=== PATIENT | female | born 1935 | race Caucasian/White ===

== ENCOUNTER 2025-09-10 10:07 | Observation (INO) ==
--- NOTE | 2025-09-10 10:23 | DR.AMS ---
HPI Time Seen Time Seen by Provider: 09/10/25 10:12 Complaint Cheif Complaint Doctors Comments: This patient was sent over from the group home for agitation. She is currently being treated for urinary tract infection and is on cefdinir. PMH PMH Past Medical History: Anemia, Depression, GERD and Hypothyroidism Past Surgical History: Yes Surgical History: Cholecystectomy and Hysterectomy Family History Family Medical History: Diabetes Mellitus, Heart Failure and Hypertension Social History Do you use any recreational Drugs:: No ROS Review of Systems Constitutional: Other (Altered mental status, agitation currently treated for UTI) Eyes: No Symptoms Reported ENTM: No Symptoms Reported Respiratoy: No Symptoms Reported Cardiovascular: No Symptoms Reported Gastrointestinal/Abdominal: No Symptoms Reported Genitourinary: Other (Currently being treated for UTI) Neurological: Other (Altered mental status) Musculoskeletal: No Symptoms Reported Integumentary: No Symptoms Reported Hematologic/Lymphatic: No Symptoms Reported Endocrine: No Symptoms Reported Psychiatric: Other (Agitation, depression) All Other Systems: Reviewed and Negative PE Vitals Vital Signs: Temp Pulse Resp BP Pulse Ox O2 Del Method 09/10/25 14:45 60 14 94 L 09/10/25 14:30 116/52 09/10/25 14:30 62 14 95 09/10/25 14:15 63 14 93 L 09/10/25 14:01 100/46 09/10/25 14:01 62 17 94 L 09/10/25 14:00 62 16 92 L 09/10/25 13:55 98.4 F 09/10/25 13:45 65 14 94 L 09/10/25 13:30 149/64 09/10/25 13:27 140/63 09/10/25 13:27 73 21 09/10/25 13:15 71 22 96 09/10/25 12:45 75 20 09/10/25 12:30 74 20 09/10/25 12:15 78 25 H 09/10/25 11:30 90 34 H 96 09/10/25 11:00 87 52 H 09/10/25 10:25 99.0 F 76 20 132/51 90 L Room Air General Limitations: Physical Limitation (This patient is nonambulatory and also has agitation) General Appearance: Anxious and In Distress (MILD DISTRESS) Head Head Exam: Normal Inspection Eyes Eye exam: Normal Appearance ENT ENT Exam: Normal Exam External Ear Exam: Normal External Inspection TM/Canal Exam: Bilateral: Normal Nose Exam: Normal Nose Exam Mouth Exam: Normal Inspection Throat Exam: Normal Inspection Neck Neck Exam: Normal Inspection Chest Chest Inspection: Normal Inspection Respiratory Respiratory Exam: Normal Lung Sounds Bilat Respiratory Exam: Bilateral: Clear to Auscultation Cardiovascular Cardiovascular Exam: Regular Rate Abdominal Exam Abdominal Exam: Normal Inspection Extremities Extremities Exam: Normal Inspection Back Back Exam: Normal Inspection Neurological Neurological Exam: Other (Disorientated to person place and time) Speech: Fluid Speech Motor Strength - LUE: 3/5 Motor Strength - RUE: 3/5 Motor Strength - LLE: 3/5 Motor Strength - RLE: 3/5 Psychological Psychiatric Exam: Agitated and Anxious MDM Differential Diagnosis Metabolic: Dehydration, Hypernatremia and Hyponatremia Toxicologic: Medication Toxicity Infectious: Sepsis and UTI COURSE Treatment Treatment: This patient may rub stable during the ER evaluation. She was more agitated initially she had to be given an additional 2.5 mg of Haldol in the ER for agitation. The patient had already been given 2.5 of Haldol at the group home. Patient did have the workup done she did have a florid urinary tract infection here she was given Rocephin 1 g IV here in the ER. Patient also got a CT scan of her brain that showed no intracranial abnormality except for some micro vascular changes. This patient was discussed with Dr. Davey at 1430 she said the patient could be put in the hospital and treated for urinary tract infection but ultimate goal is to transfer for this patient to [facility] for further treatment of foot bipolar disorder depression and may be a attempt to stab herself with a pen. ROR Labs Reviewed Laboratory Results Reviewed?: Yes 09/10/25 10:54 09/10/25 10:54 Laboratory: WBC 4.2 X10^3/uL (3.6-10.0) 09/10/25 10:54 RBC 3.01 X10^6/uL (3.5-5.4) L 09/10/25 10:54 Hgb 9.4 g/dL (12.0-16.0) L 09/10/25 10:54 Hct 27.5 % (36.0-47.0) L 09/10/25 10:54 MCV 91.5 fL (80.0-100.0) 09/10/25 10:54 MCH 31.4 pg (27.0-34.0) 09/10/25 10:54 MCHC 34.3 g/dL (33.0-35.0) 09/10/25 10:54 RDW 13.9 % (11.6-16.5) 09/10/25 10:54 Plt Count 225 X10^3/uL (150.0-450.0) 09/10/25 10:54 MPV 8.5 fL (7.4-11.0) 09/10/25 10:54 Neut % (Auto) 60.0 % (42.0-75.0) 09/10/25 10:54 Lymph % (Auto) 19.8 % (21.0-51.0) L 09/10/25 10:54 [place] % (Auto) 13.9 % (0.0-13.0) H 09/10/25 10:54 Eos % (Auto) 5.5 % (0.9-2.9) H 09/10/25 10:54 Baso % (Auto) 0.8 % (0.2-1.0) 09/10/25 10:54 Neut # (Auto) 2.5 x10^3/uL (2.2-4.8) 09/10/25 10:54 Lymph # (Auto) 0.8 X10^3/uL (1.3-2.9) L 09/10/25 10:54 [place] # (Auto) 0.6 x10^3/uL (0.3-0.8) 09/10/25 10:54 Eos # (Auto) 0.2 x10^3/uL (0.0-0.2) 09/10/25 10:54 Baso # (Auto) 0.0 X10^3/uL (0.0-0.1) 09/10/25 10:54 Absolute Nucleated RBC 0.1 /100WBC 09/10/25 10:54 Sodium 135 mmol/L (136-145) L 09/10/25 10:54 Corrected Sodium TNP 09/10/25 10:54 Potassium 4.5 mmol/L (3.5-5.1) 09/10/25 10:54 Chloride 101 mmol/L (98-107) 09/10/25 10:54 Carbon Dioxide 31.4 mmol/L (21-32) 09/10/25 10:54 BUN 21 mg/dL (7-18) H 09/10/25 10:54 Creatinine 1.01 mg/dL (0.55-1.02) 09/10/25 10:54 Est GFR (MDRD) Af Amer > 60 (>60) 09/10/25 10:54 Est GFR (MDRD) Non-Af 55 (>60) L 09/10/25 10:54 Glucose 88 mg/dL (65-99) 09/10/25 10:54 Lactic Acid 0.8 mmol/L (0.4-2.0) 09/10/25 10:54 Calcium 9.1 mg/dL (8.5-10.1) 09/10/25 10:54 Corrected Calcium 10.5 mg/dL (8.5-10.1) H 09/10/25 10:54 Total Bilirubin 0.30 mg/dL (0.2-1.0) 09/10/25 10:54 AST 18 Units/L (15-37) 09/10/25 10:54 ALT 12 Units/L (12-78) 09/10/25 10:54 Alkaline Phosphatase 185 Units/L (46-116) H 09/10/25 10:54 Total Protein 6.2 g/dL (6.4-8.2) L 09/10/25 10:54 Albumin 2.2 g/dL (3.4-5.0) L 09/10/25 10:54 Globulin 4.0 g/dL (2.5-4.5) 09/10/25 10:54 Albumin/Globulin Ratio 0.6 Ratio (1.1-2.1) L 09/10/25 10:54 Specimen Type Catherized urine 09/10/25 11:00 Urine Color Pale yellow (YELLOW) 09/10/25 11:00 Urine Appearance Hazy (CLEAR) 09/10/25 11:00 Urine pH 6.0 (5.0 - 8.0) 09/10/25 11:00 Ur Specific [place] 1.015 (1.000-1.030) 09/10/25 11:00 Urine Protein 3+ (NEGATIVE) 09/10/25 11:00 Urine Glucose (UA) Negative (NEGATIVE) 09/10/25 11:00 Urine Ketones Negative (NEGATIVE) 09/10/25 11:00 Urine Blood 4+ (NEGATIVE) 09/10/25 11:00 Urine Nitrite Negative (NEGATIVE) 09/10/25 11:00 Urine Bilirubin Negative (NEGATIVE) 09/10/25 11:00 Urine Urobilinogen Normal (NORMAL) 09/10/25 11:00 Ur Leukocyte Esterase 3+ (NEGATIVE) 09/10/25 11:00 Urine RBC 10-20 /HPF (0-3) A 09/10/25 11:00 Urine WBC Tntc /HPF (0-5) A 09/10/25 11:00 Ur Squamous Epith Cells Rare /HPF (NEGATIVE) 09/10/25 11:00 Urine Bacteria 2+ /HPF (NEGATIVE) 09/10/25 11:00 Ur Culture Indicated? Yes/culture set up 09/10/25 11:00 Opioid Opioid Risk Tool Age (Francis box if 16-45): No History of Preadolescent Sexual Abuse: No Total: 0 Total Score Risk Category: Low Risk Copyright: Matthew BLISS predicting aberrant behaviors Discharge Plan Diagnosis Discharge Problem: UTI (urinary tract infection), Altered mental status Discharge Plan Condition: Stable Prescriptions: No Action gabapentin 600 mg tablet 600 mg PO TID donepezil 10 mg tablet 10 mg PO QDAY ltdgnumdhi-cmghwgdffducs-pkrr 50-325-40 mg tablet 1 tab PO Q8H PRN losartan 25 mg tablet 25 mg PO QDAY furosemide 20 mg tablet 20 mg PO QDAY tramadol 50 mg tablet 50 mg PO Q6H PRN omeprazole 20 mg capsule,delayed release(DR/EC) 20 mg PO BID nystatin [Nyamyc] 100,000 unit/gram powder 1 applic topical DAILY Patient Comments: [NO ORIGINAL SIG] levothyroxine 175 mcg tablet 175 mcg PO QDAY lamotrigine 200 mg tablet 200 mg PO QDAY amitriptyline 25 mg tablet 75 tab PO HS mirtazapine 30 mg tablet 30 mg PO QPM ergocalciferol (vitamin D2) 1,250 mcg (50,000 unit) capsule 1 cap PO QWEEK fluoxetine 20 mg capsule 20 mg PO HS ursodiol 500 mg tablet 500 tab PO QID polyethylene glycol 3350 [Miralax] 17 gram Powder In Packet 17 g PO DAILY ibuprofen 200 mg Tablet 200 mg PO Q4H PRN (Reason: Pain) docusate sodium [Colace] 100 mg Capsule 200 mg PO HS cefdinir 300 mg capsule 300 mg PO BID Rx Instructions: x 10 days - started on 09/06/25 Health Concerns: Post Hospitalization: new medications and changes needed to prevent readmission or further decline. Pt educated and given instructions on all concerns. Plan of Treatment: Continue with present treatment and follow up plan. Pt is to keep follow up appointment as instructed and take medications as ordered. Orders to Discharge Patient Discharge Orders: Transfer (Routine); Ordered 09/10/25 Ordered By: Ryan Archer Instructions Print Language: MARSHALLESE
[2025-09-10 11:17] LABS: BLOOD/HEMOGLOBIN,URINE 4+ (NEGATIVE); LEUKOCYTE ESTERASE ,URINE 3+ (NEGATIVE); NITRITES,URINE NEGATIVE (NEGATIVE)
[2025-09-10 11:26] LABS: APPEARANCE,URINE HAZY (CLEAR); SQUAMOUS EPITHELIAL CELL,UR RARE /HPF (NEGATIVE)
[2025-09-10 11:49] LABS: MEAN PLATELET VOLUME 8.5 fL (7.4-11.0)
[2025-09-10 11:54] LABS: RED CELL DISTRIBUTION WIDTH 13.9 % (11.6-16.5)
[2025-09-10 11:58] LABS: COR CA(FOR HYPOALB) 10.5 mg/dL (8.5-10.1); CREATININE 1.01 mg/dL (0.55-1.02); eGFR NON BLACK RACES 55 (>60)
[2025-09-10] MEDS: ROCEPHIN VIAL 1 GRAM IV ONE (12:01)
[2025-09-10] MEDS: HALDOL INJ IM ONE (12:01)
--- NOTE | 2025-09-10 13:23 | CT ---
EXAMINATION: HEAD (TRAUMA) HISTORY: AMS; altered mental status being super confused. told staff in er that she, "wanted to ". COMPARISON: CT brain 05/25/2022 TECHNIQUE: Contiguous noncontrast axial CT images of the brain. Images reviewed in the axial imaging plane with reformatted sagittal and coronal images.The above CT scan was done with automated exposure control and the mA and kV was adjusted to obtain quality images according to patient size. FINDINGS: No evidence of acute intracranial hemorrhage, mass effect, or midline shift. Generalized decreased density to the deep white matter adjacent to the lateral ventricles and centrum semiovale regions bilaterally without associated mass effect. Consider chronic ischemic white matter changes from small vessel disease or other cause of gliosis. The ventricles are normal size and shape. Calvarium appears intact. Arterial vascular calcifications base of the brain. IMPRESSION: No acute intracranial hemorrhage or mass effect. Recommend follow-up MRI of the brain if this is of continued clinical concern. THIS IS AN ELECTRONICALLY VERIFIED FINAL REPORT 09/10/2025 1:20 PM - Electronically signed by Ariane Harris MD
[2025-09-10] MEDS ORDERED: ULTRAM PO PRN (15:13)
[2025-09-10] MEDS: ROCEPHIN VIAL 1 GRAM 1 G in NS 100 ML IV 100 ML IV SCH (15:18)
[2025-09-10] MEDS: HALDOL INJ ONE (15:34)
[2025-09-10] MEDS: ROCEPHIN VIAL 1 GRAM ONE (15:34)
[2025-09-10 16:11] VITALS: BMI 35.8
[2025-09-10] MEDS: REMERON PO SCH (20:12)
[2025-09-10] MEDS: COLACE CAP 100 MG PO SCH (20:12)
[2025-09-10] MEDS: ELAVIL PO SCH (20:12)
[2025-09-10] MEDS ORDERED: ELAVIL PO SCH (21:00)
[2025-09-10] MEDS: COZAAR PO SCH (21:19)
[2025-09-11 05:45] LABS: COR CA(FOR HYPOALB) 10.8 mg/dL (8.5-10.1); CREATININE 0.85 mg/dL (0.55-1.02); eGFR NON BLACK RACES > 60 (>60)
[2025-09-11 05:59] LABS: MEAN PLATELET VOLUME 8.3 fL (7.4-11.0); RED CELL DISTRIBUTION WIDTH 13.9 % (11.6-16.5)
[2025-09-11 06:26] LABS: PLATELET MORPHOLOGY COMMENT NORMAL (NORMAL)
[2025-09-11] MEDS ORDERED: LASIX PO PRN (09:00)
[2025-09-11] MEDS ORDERED: COZAAR PO SCH (09:00)
[2025-09-11] MEDS: MIRALAX POWDER (1 DOSE 17 G) PO SCH (10:29)
[2025-09-11] MEDS: ARICEPT TAB 10 MG PO SCH (10:29)
[2025-09-11] MEDS: SYNTHROID 175 mcg TAB PO SCH (10:29)
--- NOTE | 2025-09-11 10:44 | DR.H&P ---
H&P History & Physical for Day of: H&P Date: 09/11/25 Chief Complaint Chief Complaint: AMS, agitation History of Present Illness History of Present Illness: Patient was brought from [facility] after being agitated and confused. Patient tried to stab herself with a pen and was stating that she would like to at the correction. She was given Haldol and brought to the ER. She was being treated for UTI since last week. Workup included CT brain which was negative for any acute changes. Labs were done and UA was concerning for UTI. Patient was started on IV antibiotics and admitted for further management. Patient does have a history of depression, anxiety and bipolar disorder. She is alert and oriented this morning. She denies having any SI or HI. She does not recall the episode yesterday. Labs/imaging reviewed: - WBC 4.2 hemoglobin 9.1 potassium 4.2 creatinine 0.85 - Urine culture gram-negative will. Previous urine culture E. coli. - CT brain reviewed Plan: Continue to monitor closely. Continue IV antibiotics, follow pending cultures. Resume home medications. Patient denies SI or HI today. Patient does need clearance from mental health in order to go back to the correction. Replace electrolytes as per protocol. Check thyroid panel, Vit B12. Monitor a.m. labs and imaging Time spent for clinical assessment, reviewing labs and imaging, physical exam, decision making and documentation greater than 45 minutes. Past Medical History Past Medical History: Anemia, Depression, GERD and Hypothyroidism Past Surgical History Surgical History: Cholecystectomy and Hysterectomy Family History Family Medical History: Diabetes Mellitus, Heart Failure and Hypertension Social History Alcohol Use: None Drug Use: None Medications Home Medications: Home Medications Medication Instructions Recorded Confirmed Type amitriptyline 25 mg tablet 75 tab PO HS 05/25/2209/10 History ergocalciferol (vitamin D2) 1,250 1 cap PO QWEEK 05/2509/10/25 History mcg (50,000 unit) capsule fluoxetine 20 mg capsule 20 mg PO HS 05/25/22 5 History lamotrigine 200 mg tablet 200 mg PO HS 05/25/22 History levothyroxine 175 mcg tablet 175 mcg PO QDAY 05/25/22 09/10/25 History mirtazapine 30 mg tablet 30 mg PO QPM 05/25/22 History ursodiol 500 mg tablet 500 tab PO QID 05/25/22 12/02/28 History zylcaerhjz-xddenimheqrnu-voiijhci 1 tab PO Q8H PRN 03/3109/10/25 History 50 mg-325 mg-40 mg tablet donepezil 10 mg tablet 10 mg PO QDAY 08/12/2509/10 History furosemide 20 mg tablet 20 mg PO QDAY PRN 08/12/25 1 11/11/24 History gabapentin 600 mg tablet 600 mg PO TID 08/12/2509/10 History losartan 25 mg tablet 25 mg PO QHS 08/12/25 History nystatin 100,000 unit/gram topical 1 applic topical DA DHRUV 08/12/25 09/10/25 History powder (Nyamyc) omeprazole 20 mg capsule,delayed 20 mg PO DAILY 09/10/25 History release tramadol 50 mg tablet 50 mg PO Q6H PRN 08/12/25 History cefdinir 300 mg capsule 300 mg PO BID 09/10/2509/10 History docusate sodium 100 mg capsule 200 mg PO HS 09/10/25 1 11/11/24 History (Colace) ibuprofen 200 mg tablet 200 mg PO Q4H PRN Pain 09/1009/10/25 History polyethylene glycol 3350 17 gram 17 g PO DAILY 5 09/10/25 History oral powder packet (Miralax) Allergies Allergies Allergy/AdvReac Type Severity Reaction Status Date / Time codeine Allergy Unknown Verified 09/10/25 10:23 Sulfa (Sulfonamide Allergy Unknown Verified 09/10/25 10:23 Antibiotics) (SULFA) citalopram Allergy Verified 09/10/25 10:23 Labs 09/11/25 04:12 09/11/25 04:12 Labs: 09/10/25 11:00 Urine,Catheterized Urine Culture - Preliminary Laboratory WBC 4.2 X10^3/uL (3.6-10.0) 09/11/25 04:12 RBC 2.92 X10^6/uL (3.5-5.4) L 09/11/25 04:12 Hgb 9.1 g/dL (12.0-16.0) L 09/11/25 04:12 Hct 26.6 % (36.0-47.0) L 09/11/25 04:12 MCV 91.0 fL (80.0-100.0) 09/11/25 04:12 MCH 31.1 pg (27.0-34.0) 09/11/25 04:12 MCHC 34.2 g/dL (33.0-35.0) 09/11/25 04:12 RDW 13.9 % (11.6-16.5) 09/11/25 04:12 Plt Count 258 X10^3/uL (150.0-450.0) 09/11/25 04:12 Plt Count Comment Adequate (ADEQUATE) 09/11/25 04:12 MPV 8.3 fL (7.4-11.0) 09/11/25 04:12 Neut % (Auto) 58.9 % (42.0-75.0) 09/11/25 04:12 Lymph % (Auto) 21.3 % (21.0-51.0) 09/11/25 04:12 [place] % (Auto) 13.6 % (0.0-13.0) H 09/11/25 04:12 Eos % (Auto) 5.2 % (0.9-2.9) H 09/11/25 04:12 Baso % (Auto) 1.0 % (0.2-1.0) 09/11/25 04:12 Neut # (Auto) 2.5 x10^3/uL (2.2-4.8) 09/11/25 04:12 Lymph # (Auto) 0.9 X10^3/uL (1.3-2.9) L 09/11/25 04:12 [place] # (Auto) 0.6 x10^3/uL (0.3-0.8) 09/11/25 04:12 Eos # (Auto) 0.2 x10^3/uL (0.0-0.2) 09/11/25 04:12 Baso # (Auto) 0.0 X10^3/uL (0.0-0.1) 09/11/25 04:12 Absolute Nucleated RBC 0.6 /100WBC 09/11/25 04:12 Total Counted 100 09/11/25 04:12 Neutrophils % (Manual) 60 % (39-76) 09/11/25 04:12 Lymphocytes % (Manual) 27 % (13-43) 09/11/25 04:12 Monocytes % (Manual) 8 % (4-9) 09/11/25 04:12 Eosinophils % (Manual) 5 % (0-6) 09/11/25 04:12 Plt Morphology Comment Normal (NORMAL) 09/11/25 04:12 RBC Morphology Normal (NORMAL) 09/11/25 04:12 Sodium 143 mmol/L (136-145) 09/11/25 04:12 Corrected Sodium TNP 09/11/25 04:12 Potassium 4.2 mmol/L (3.5-5.1) 09/11/25 04:12 Chloride 106 mmol/L (98-107) 09/11/25 04:12 Carbon Dioxide 32.3 mmol/L (21-32) H 09/11/25 04:12 BUN 15 mg/dL (7-18) 09/11/25 04:12 Creatinine 0.85 mg/dL (0.55-1.02) 09/11/25 04:12 Est GFR (MDRD) Af Amer > 60 (>60) 09/11/25 04:12 Est GFR (MDRD) Non-Af > 60 (>60) 09/11/25 04:12 Glucose 87 mg/dL (65-99) 09/11/25 04:12 Lactic Acid 0.8 mmol/L (0.4-2.0) 09/10/25 10:54 Calcium 9.3 mg/dL (8.5-10.1) 09/11/25 04:12 Corrected Calcium 10.8 mg/dL (8.5-10.1) H 09/11/25 04:12 Total Bilirubin 0.30 mg/dL (0.2-1.0) 09/11/25 04:12 AST 19 Units/L (15-37) 09/11/25 04:12 ALT 12 Units/L (12-78) 09/11/25 04:12 Alkaline Phosphatase 173 Units/L (46-116) H 09/11/25 04:12 Total Protein 5.9 g/dL (6.4-8.2) L 09/11/25 04:12 Albumin 2.1 g/dL (3.4-5.0) L 09/11/25 04:12 Globulin 3.8 g/dL (2.5-4.5) 09/11/25 04:12 Albumin/Globulin Ratio 0.6 Ratio (1.1-2.1) L 09/11/25 04:12 Specimen Type Catherized urine 09/10/25 11:00 Urine Color Pale yellow (YELLOW) 09/10/25 11:00 Urine Appearance Hazy (CLEAR) 09/10/25 11:00 Urine pH 6.0 (5.0 - 8.0) 09/10/25 11:00 Ur Specific [place] 1.015 (1.000-1.030) 09/10/25 11:00 Urine Protein 3+ (NEGATIVE) 09/10/25 11:00 Urine Glucose (UA) Negative (NEGATIVE) 09/10/25 11:00 Urine Ketones Negative (NEGATIVE) 09/10/25 11:00 Urine Blood 4+ (NEGATIVE) 09/10/25 11:00 Urine Nitrite Negative (NEGATIVE) 09/10/25 11:00 Urine Bilirubin Negative (NEGATIVE) 09/10/25 11:00 Urine Urobilinogen Normal (NORMAL) 09/10/25 11:00 Ur Leukocyte Esterase 3+ (NEGATIVE) 09/10/25 11:00 Urine RBC 10-20 /HPF (0-3) A 09/10/25 11:00 Urine WBC Tntc /HPF (0-5) A 09/10/25 11:00 Ur Squamous Epith Cells Rare /HPF (NEGATIVE) 09/10/25 11:00 Urine Bacteria 2+ /HPF (NEGATIVE) 09/10/25 11:00 Ur Culture Indicated? Yes/culture set up 09/10/25 11:00 Review of Systems Constitutional: No Symptoms Reported Eyes: No Symptoms Reported ENT: No Symptoms Reported Respiratory: No Symptoms Reported Cardiovascular: No Symptoms Reported Gastrointestinal: No Symptoms Reported Genitourinary: No Symptoms Reported Musculoskeletal: No Symptoms Reported Skin: Wound Neurological: Confusion Physical Exam Vital Signs: Vital Signs Temperature 98.7 F Pulse Rate 79 Pulse Rate 81 Pulse Rate 85 Pulse Rate 83 Pulse Rate 75 Pulse Rate 74 Pulse Rate 75 Pulse Rate 74 Pulse Rate 91 Pulse Rate 72 Pulse Rate 75 Pulse Rate 75 Pulse Rate 78 Pulse Rate 76 Pulse Rate 79 Pulse Rate 79 Pulse Rate 79 Pulse Rate 80 Pulse Rate 79 Pulse Rate 78 Pulse Rate 82 Pulse Rate 81 Pulse Rate 81 Pulse Rate 83 Pulse Rate 84 Pulse Rate 88 Pulse Rate 88 Respiratory Rate 19 Respiratory Rate 18 Respiratory Rate 19 Respiratory Rate 20 Respiratory Rate 20 Respiratory Rate 19 Respiratory Rate 20 Respiratory Rate 24 Respiratory Rate 33 Respiratory Rate 18 Respiratory Rate 38 Respiratory Rate 25 Respiratory Rate 19 Respiratory Rate 26 Respiratory Rate 24 Respiratory Rate 27 Respiratory Rate 22 Respiratory Rate 24 Respiratory Rate 23 Respiratory Rate 21 Respiratory Rate 23 Respiratory Rate 23 Respiratory Rate 22 Respiratory Rate 21 Respiratory Rate 23 Respiratory Rate 25 Respiratory Rate 26 Blood Pressure 180/74 Blood Pressure 128/61 Blood Pressure 128/61 O2 Sat by Pulse Oximetry 94 O2 Sat by Pulse Oximetry 95 O2 Sat by Pulse Oximetry 96 O2 Sat by Pulse Oximetry 97 O2 Sat by Pulse Oximetry 95 O2 Sat by Pulse Oximetry 96 O2 Sat by Pulse Oximetry 95 O2 Sat by Pulse Oximetry 94 O2 Sat by Pulse Oximetry 94 O2 Sat by Pulse Oximetry 94 O2 Sat by Pulse Oximetry 94 O2 Sat by Pulse Oximetry 95 O2 Sat by Pulse Oximetry 95 O2 Sat by Pulse Oximetry 94 O2 Sat by Pulse Oximetry 94 O2 Sat by Pulse Oximetry 94 O2 Sat by Pulse Oximetry 95 O2 Sat by Pulse Oximetry 95 O2 Sat by Pulse Oximetry 94 O2 Sat by Pulse Oximetry 94 O2 Sat by Pulse Oximetry 95 O2 Sat by Pulse Oximetry 95 O2 Sat by Pulse Oximetry 93 O2 Sat by Pulse Oximetry 93 O2 Sat by Pulse Oximetry 91 O2 Sat by Pulse Oximetry 91 O2 Sat by Pulse Oximetry 91 Oriented: Normal Respiratory: Clear Throughout Cardiovascular: Normal Auscultation: Bowel Sounds: Normal Palpation: Normal Tenderness: Normal Skin: Wound (left forearm ) Musculoskeletal: Normal Psychiatric: Normal Mood Description: Calm Affect: Flat Speech Pattern: Clear and Appropriate Assessment/Plan (1) Altered mental status: Qualifiers: Altered mental status type: unspecified Qualified Code(s): R41.82 - Altered mental status, unspecified Status: Acute (2) UTI (urinary tract infection): Qualifiers: Hematuria presence: without hematuria Urinary tract infection type: a cute cystitis Qualified Code(s): N30.00 - Acute cystitis without hematuria Status: Acute (3) Anxiety disorder, unspecified: Qualifiers: Anxiety disorder type: unspecified anxiety disorder Qualified Code(s): F41.9 - Anxiety disorder, unspecified Status: Chronic (4) Wound of left upper extremity: Qualifiers: Encounter type: initial encounter Qualified Code(s): S41.102A - Unspecified open wound of left upper arm, initial encounter Status: Acute (5) Depression: Qualifiers: Depression Type: unspecified Qualified Code(s): F32.A - Depression, unspecified Status: None (6) HTN (hypertension): Qualifiers: Hypertension type: primary hypertension Qualified Code(s): I10 - Essential (primary) hypertension Status: Chronic (7) GERD (gastroesophageal reflux disease): Qualifiers: Esophagitis presence: esophagitis presence not specified Qualified Code(s): K21.9 - Gastro-esophageal reflux disease without esophagitis Status: Chronic Review H&P Reviewed: Yes Patient was examined?: Yes
[2025-09-11 12:32] LABS: TSH (3RD GENERATION) 7.840 uIU/mL (0.358-3.74)
[2025-09-11] MEDS: LAMICTAL TAB 100 MG PO SCH (20:44)
[2025-09-12 05:19] LABS: COR CA(FOR HYPOALB) 10.9 mg/dL (8.5-10.1); CREATININE 0.68 mg/dL (0.55-1.02); eGFR NON BLACK RACES > 60 (>60)
[2025-09-12 05:20] LABS: MEAN PLATELET VOLUME 8.1 fL (7.4-11.0); RED CELL DISTRIBUTION WIDTH 14.1 % (11.6-16.5)
[2025-09-12 05:36] LABS: BAND NEUTROPHILS % 2 % (0-10); PLATELET MORPHOLOGY COMMENT NORMAL (NORMAL)
[2025-09-12] MEDS ORDERED: CONSULT PHARMACY - POTASSIUM & MAGNESIUM XX SCH (06:00)
[2025-09-12] MEDS: K-DUR TAB 20 MEQ PO SCH (09:06)
[2025-09-12] MEDS: MAG-OX TAB PO SCH (09:07)
--- NOTE | 2025-09-12 10:09 | PCM.PROG ---
Progress Note Progress Note for Day of Date of Exam: 09/12/25 Subjective Subjective: Patient seen at bedside, no acute events overnight. She has been having diarrhea since yesterday. She also reports some epigastric pain. She also has some productive cough. She was evaluated by mobile crisis team and was cleared to go back to the skilled nursing. Labs/imaging reviewed: - WBC 4.9 hemoglobin 9.3 potassium 3.8 magnesium 1.7 creatinine 0.68 - Urine culture pending Plan: Order stool studies, KUB and chest x-ray. Start Pepcid and Carafate. Start probiotics. Continue IV Rocephin. Follow pending cultures. Replace electrolytes as per protocol. Stop MiraLAX and Colace. Continue home medications. Monitor a.m. labs and imaging. Time spent for clinical assessment, reviewing labs and imaging, physical exam, decision making and documentation greater than 45 minutes. Past Medical Family Social History Allergies: Allergies codeine Allergy (Unknown, Verified 09/10/25 10:23) Sulfa (Sulfonamide Antibiotics) (SULFA) Allergy (Unknown, Verified 09/10/25 10:23) citalopram Allergy (Verified 09/10/25 10:23) Vital Signs and I&O's Vital Signs: Vital Signs Temperature 97.9 F Pulse Rate 87 Pulse Rate 82 Pulse Rate 84 Pulse Rate 89 Pulse Rate 83 Pulse Rate 88 Pulse Rate 79 Pulse Rate 75 Pulse Rate 67 Pulse Rate 66 Pulse Rate 67 Pulse Rate 64 Pulse Rate 66 Pulse Rate 71 Pulse Rate 67 Pulse Rate 75 Pulse Rate 74 Pulse Rate 75 Pulse Rate 74 Pulse Rate 74 Pulse Rate 76 Pulse Rate 72 Pulse Rate 69 Pulse Rate 67 Pulse Rate 66 Pulse Rate 66 Pulse Rate 80 Pulse Rate 65 Pulse Rate 66 Pulse Rate 65 Respiratory Rate 19 Respiratory Rate 18 Respiratory Rate 20 Respiratory Rate 24 Respiratory Rate 22 Respiratory Rate 34 Respiratory Rate 23 Respiratory Rate 21 Respiratory Rate 22 Respiratory Rate 19 Respiratory Rate 20 Respiratory Rate 20 Respiratory Rate 22 Respiratory Rate 21 Respiratory Rate 19 Respiratory Rate 22 Respiratory Rate 22 Respiratory Rate 22 Respiratory Rate 22 Respiratory Rate 22 Respiratory Rate 22 Respiratory Rate 21 Respiratory Rate 20 Respiratory Rate 19 Respiratory Rate 21 Respiratory Rate 22 Respiratory Rate 22 Respiratory Rate 20 Respiratory Rate 21 Respiratory Rate 19 Blood Pressure 165/72 Blood Pressure 160/70 Blood Pressure 164/72 Blood Pressure 160/70 O2 Sat by Pulse Oximetry 93 O2 Sat by Pulse Oximetry 93 O2 Sat by Pulse Oximetry 92 O2 Sat by Pulse Oximetry 95 O2 Sat by Pulse Oximetry 94 O2 Sat by Pulse Oximetry 95 O2 Sat by Pulse Oximetry 97 O2 Sat by Pulse Oximetry 97 O2 Sat by Pulse Oximetry 96 O2 Sat by Pulse Oximetry 96 O2 Sat by Pulse Oximetry 96 O2 Sat by Pulse Oximetry 95 O2 Sat by Pulse Oximetry 96 O2 Sat by Pulse Oximetry 95 O2 Sat by Pulse Oximetry 95 O2 Sat by Pulse Oximetry 95 O2 Sat by Pulse Oximetry 95 O2 Sat by Pulse Oximetry 96 O2 Sat by Pulse Oximetry 96 O2 Sat by Pulse Oximetry 96 O2 Sat by Pulse Oximetry 96 O2 Sat by Pulse Oximetry 96 O2 Sat by Pulse Oximetry 97 O2 Sat by Pulse Oximetry 97 O2 Sat by Pulse Oximetry 97 O2 Sat by Pulse Oximetry 97 O2 Sat by Pulse Oximetry 97 O2 Sat by Pulse Oximetry 96 O2 Sat by Pulse Oximetry 96 O2 Sat by Pulse Oximetry 96 Intake and Output: Intake & Output 09/09/25 09/10/25 09/11/25 09/12/25 23:59 23:59 23:59 23:59 Intake Total 300 / 300 440 / 440 210 / 210 Output Total 2500 / 2500 2200 / 2200 400 / 400 Balance -2200 / -2200 -1760 / -1760 -190 / -190 Physical Exam Oriented: Normal Respiratory: Generalized and Diminished Cardiovascular: Normal Auscultation: Bowel Sounds: Normal Tenderness: Epigastric and Mild Skin: Wound (left forearm ) Musculoskeletal: Normal Psychiatric: Normal Mood Description: Calm Affect: Flat Speech Pattern: Clear and Appropriate Laboratory and Diagnostics 09/12/25 04:17 09/12/25 04:17 Labs: 09/10/25 11:00 Urine,Catheterized Urine Culture - Preliminary Laboratory WBC 4.9 X10^3/uL (3.6-10.0) 09/12/25 04:17 RBC 2.98 X10^6/uL (3.5-5.4) L 09/12/25 04:17 Hgb 9.3 g/dL (12.0-16.0) L 09/12/25 04:17 Hct 27.4 % (36.0-47.0) L 09/12/25 04:17 MCV 91.9 fL (80.0-100.0) 09/12/25 04:17 MCH 31.3 pg (27.0-34.0) 09/12/25 04:17 MCHC 34.0 g/dL (33.0-35.0) 09/12/25 04:17 RDW 14.1 % (11.6-16.5) 09/12/25 04:17 Plt Count 278 X10^3/uL (150.0-450.0) 09/12/25 04:17 Plt Count Comment Adequate (ADEQUATE) 09/12/25 04:17 MPV 8.1 fL (7.4-11.0) 09/12/25 04:17 Neut % (Auto) 58.2 % (42.0-75.0) 09/12/25 04:17 Lymph % (Auto) 26.5 % (21.0-51.0) 09/12/25 04:17 [place] % (Auto) 11.3 % (0.0-13.0) 09/12/25 04:17 Eos % (Auto) 3.2 % (0.9-2.9) H 09/12/25 04:17 Baso % (Auto) 0.8 % (0.2-1.0) 09/12/25 04:17 Neut # (Auto) 2.9 x10^3/uL (2.2-4.8) 09/12/25 04:17 Lymph # (Auto) 1.3 X10^3/uL (1.3-2.9) 09/12/25 04:17 [place] # (Auto) 0.6 x10^3/uL (0.3-0.8) 09/12/25 04:17 Eos # (Auto) 0.2 x10^3/uL (0.0-0.2) 09/12/25 04:17 Baso # (Auto) 0.0 X10^3/uL (0.0-0.1) 09/12/25 04:17 Absolute Nucleated RBC 0.5 /100WBC 09/12/25 04:17 Total Counted 100 09/12/25 04:17 Neutrophils % (Manual) 64 % (39-76) 09/12/25 04:17 Band Neutrophils % 2 % (0-10) 09/12/25 04:17 Lymphocytes % (Manual) 23 % (13-43) 09/12/25 04:17 Monocytes % (Manual) 7 % (4-9) 09/12/25 04:17 Eosinophils % (Manual) 4 % (0-6) 09/12/25 04:17 Plt Morphology Comment Normal (NORMAL) 09/12/25 04:17 RBC Morphology Normal (NORMAL) 09/12/25 04:17 Sodium 144 mmol/L (136-145) 09/12/25 04:17 Corrected Sodium TNP 09/12/25 04:17 Potassium 3.8 mmol/L (3.5-5.1) 09/12/25 04:17 Chloride 105 mmol/L (98-107) 09/12/25 04:17 Carbon Dioxide 33.4 mmol/L (21-32) H 09/12/25 04:17 BUN 9 mg/dL (7-18) 09/12/25 04:17 Creatinine 0.68 mg/dL (0.55-1.02) 09/12/25 04:17 Est GFR (MDRD) Af Amer > 60 (>60) 09/12/25 04:17 Est GFR (MDRD) Non-Af > 60 (>60) 09/12/25 04:17 Glucose 102 mg/dL (65-99) H 09/12/25 04:17 Lactic Acid 0.8 mmol/L (0.4-2.0) 09/10/25 10:54 Calcium 9.4 mg/dL (8.5-10.1) 09/12/25 04:17 Corrected Calcium 10.9 mg/dL (8.5-10.1) H 09/12/25 04:17 Magnesium 1.7 mg/dL (2.0-2.9) L 09/12/25 04:17 Total Bilirubin 0.20 mg/dL (0.2-1.0) 09/12/25 04:17 AST 20 Units/L (15-37) 09/12/25 04:17 ALT 9 Units/L (12-78) L 09/12/25 04:17 Alkaline Phosphatase 173 Units/L (46-116) H 09/12/25 04:17 Total Protein 6.1 g/dL (6.4-8.2) L 09/12/25 04:17 Albumin 2.1 g/dL (3.4-5.0) L 09/12/25 04:17 Globulin 4.0 g/dL (2.5-4.5) 09/12/25 04:17 Albumin/Globulin Ratio 0.5 Ratio (1.1-2.1) L 09/12/25 04:17 Vitamin B12 > 2000 pg/mL (193-986) H 09/11/25 04:12 Free T4 0.98 ng/dL (0.76-1.46) 09/11/25 04:12 TSH 3rd Generation 7.840 uIU/mL (0.358-3.74) H 09/11/25 04:12 Specimen Type Catherized urine 09/10/25 11:00 Urine Color Pale yellow (YELLOW) 09/10/25 11:00 Urine Appearance Hazy (CLEAR) 09/10/25 11:00 Urine pH 6.0 (5.0 - 8.0) 09/10/25 11:00 Ur Specific [place] 1.015 (1.000-1.030) 09/10/25 11:00 Urine Protein 3+ (NEGATIVE) 09/10/25 11:00 Urine Glucose (UA) Negative (NEGATIVE) 09/10/25 11:00 Urine Ketones Negative (NEGATIVE) 09/10/25 11:00 Urine Blood 4+ (NEGATIVE) 09/10/25 11:00 Urine Nitrite Negative (NEGATIVE) 09/10/25 11:00 Urine Bilirubin Negative (NEGATIVE) 09/10/25 11:00 Urine Urobilinogen Normal (NORMAL) 09/10/25 11:00 Ur Leukocyte Esterase 3+ (NEGATIVE) 09/10/25 11:00 Urine RBC 10-20 /HPF (0-3) A 09/10/25 11:00 Urine WBC Tntc /HPF (0-5) A 09/10/25 11:00 Ur Squamous Epith Cells Rare /HPF (NEGATIVE) 09/10/25 11:00 Urine Bacteria 2+ /HPF (NEGATIVE) 09/10/25 11:00 Ur Culture Indicated? Yes/culture set up 09/10/25 11:00 Plan (1) Acute diarrhea: Status: Acute (2) Altered mental status: Status: Acute Qualifiers: Altered mental status type: unspecified Qualified Code(s): R41.82 - Altered mental status, unspecified (3) UTI (urinary tract infection): Status: Acute Qualifiers: Hematuria presence: without hematuria Urinary tract infection type: a cute cystitis Qualified Code(s): N30.00 - Acute cystitis without hematuria (4) Anxiety disorder, unspecified: Status: Chronic Qualifiers: Anxiety disorder type: unspecified anxiety disorder Qualified Code(s): F41.9 - Anxiety disorder, unspecified (5) Wound of left upper extremity: Status: Acute Qualifiers: Encounter type: initial encounter Qualified Code(s): S41.102A - Unspecified open wound of left upper arm, initial encounter (6) Depression: Status: None Qualifiers: Depression Type: unspecified Qualified Code(s): F32.A - Depression, unspecified (7) HTN (hypertension): Status: Chronic Qualifiers: Hypertension type: primary hypertension Qualified Code(s): I10 - Essential (primary) hypertension (8) GERD (gastroesophageal reflux disease): Status: Chronic Qualifiers: Esophagitis presence: esophagitis presence not specified Qualified Code(s): K21.9 - Gastro-esophageal reflux disease without esophagitis
[2025-09-12] MEDS: CARAFATE PO SCH (11:03)
[2025-09-12] MEDS: VISBIOME PROBIOTIC CAP 112.5 B or equivalent PO SCH (11:03)
[2025-09-12] MEDS: PEPCID 20 MG VIAL 20 MG in NS 50 ML IV 50 ML IV SCH (11:03)
[2025-09-12] MEDS: INVanz INJ 1 GRAM VIAL 1 G in NS 100 ML IV 100 ML IV SCH (11:59)
--- NOTE | 2025-09-12 12:23 | RAD ---
EXAMINATION: CHEST, 1 VIEW HISTORY: cough; . COMPARISON STUDY: Chest x-ray 08/30/2025 TECHNIQUE: Single frontal view of the chest FINDINGS: Lungs are expanded. Patchy bibasilar infiltrates. Mild cardiac silhouette enlargement. Normal pulmonary vascular pattern. Bones are intact. Mild thoracic spondylosis. Degenerative changes of the shoulders. Widening of the left AC joint probable postsurgical or chronic posttraumatic. IMPRESSION: Subtle streaky bibasilar opacities. Mild cardiac silhouette enlargement. THIS IS AN ELECTRONICALLY VERIFIED FINAL REPORT 09/12/2025 12:20 PM - Electronically signed by Ariane Harris MD
--- NOTE | 2025-09-12 12:24 | RAD ---
EXAMINATION: KUB HISTORY: ABDOMINAL PAIN / CONSTIPATION; . COMPARISON STUDY: None. TECHNIQUE: 2 supine AP views of the abdomen and pelvis FINDINGS: Mild amount of bowel-gas and feces. Mild gaseous distention of the stomach. Visualized soft tissue outlines and osseous structures appear intact. Moderate multilevel spondylosis lumbar spine. Severe degenerative changes right hip joint. Partially imaged left hip arthroplasty. Surgical clips pubic symphysis. Multiple faint calcifications within the right mid abdomen consistent with nephrolithiasis. IMPRESSION: Mild amount of bowel-gas and feces. Right-sided nephrolithiasis. THIS IS AN ELECTRONICALLY VERIFIED FINAL REPORT 09/12/2025 12:21 PM - Electronically signed by Ariane Harris MD
[2025-09-13 05:09] LABS: MEAN PLATELET VOLUME 7.6 fL (7.4-11.0); RED CELL DISTRIBUTION WIDTH 14.0 % (11.6-16.5)
[2025-09-13 05:22] LABS: COR CA(FOR HYPOALB) 10.6 mg/dL (8.5-10.1); CREATININE 0.77 mg/dL (0.55-1.02); eGFR NON BLACK RACES > 60 (>60)
[2025-09-13 05:58] LABS: BAND NEUTROPHILS % 1 % (0-10); PLATELET MORPHOLOGY COMMENT NORMAL (NORMAL)
[2025-09-13] MEDS ORDERED: CONSULT PHARMACY - POTASSIUM & MAGNESIUM XX SCH (06:00)
[2025-09-13] MEDS: ZOFRAN TAB 4 MG SL PRN (09:00)
[2025-09-13] MEDS: K-DUR TAB 20 MEQ PO SCH (09:31)
[2025-09-13] MEDS: MAG-OX TAB PO SCH (09:31)
[2025-09-13] MEDS: VITAMIN D (1.25MG) PO SCH (09:31)
[2025-09-13] MEDS ORDERED: XYLOCAINE 1 % (PLAIN) ONE (10:21)
[2025-09-13 15:09] VITALS: BP 173/71; PULSE 64; RESP 23; O2SAT 97
[2025-09-13 15:10] VITALS: TEMP 98.5
--- NOTE | 2025-09-14 09:15 | W.DIS.FURT ---
Summary of Discharge Discharge Summary of Date Date of Exam: 09/14/25 Admission Date Date of Admission: 09/10/25 Admission Diagnosis Patient Problems (Updated 09/12/25 @ 10:09 by Siobhan Hung MD) Altered mental status (Acute) R41.82 UTI (urinary tract infection) (Acute) N39.0 Hospital Course: Patient was brought from [facility] after being agitated and confused. Patient tried to stab herself with a pen and was stating that she would like to at the [facility]. She was given Haldol and brought to the ER. She was being treated for UTI since last week. Workup included CT brain which was negative for any acute changes. Labs were done and UA was concerning for UTI. Patient was started on IV antibiotics and admitted for further management. Patient does have a history of depression, anxiety and bipolar disorder. She is alert and oriented this morning. She denies having any SI or HI. She does not recall the episode yesterday. Mobile crisis team was consulted and evaluated the patient. Patient was cleared to go back to [facility]. Urine Cx grew out Klebsiella ESBL. Her antibiotics were changed to Invanz. Her labs were monitored daily and electrolytes replaced as needed. She will need IV antibiotics. Anesthesia was consulted for PICC line but had 2 unsuccessful attempts. Patient was sent back to [facility] with peripheral access. She was stable for discharge. Time spent for clinical assessment, reviewing labs and imaging, physical exam, decision making and documentation greater than 45 minutes. Vital Signs: Vital Signs (72 hours) 09/10/25 10:25 09/10/25 11:00 09/10/25 11:30 Temperature 99.0 F Pulse Rate 76 87 90 Respiratory Rate 20 52 H 34 H Blood Pressure 132/51 O2 Sat by Pulse Oximetry 90 L 96 Oxygen Delivery Method Room Air Oxygen Flow Rate FIO2% 09/10/25 12:15 09/10/25 12:30 09/10/25 12:45 Temperature Pulse Rate 78 74 75 Respiratory Rate 25 H 20 20 Blood Pressure O2 Sat by Pulse Oximetry Oxygen Delivery Method Oxygen Flow Rate FIO2% 09/10/25 13:15 09/10/25 13:27 09/10/25 13:27 Temperature Pulse Rate 71 73 Respiratory Rate 22 21 Blood Pressure 140/63 O2 Sat by Pulse Oximetry 96 Oxygen Delivery Method Oxygen Flow Rate FIO2% 09/10/25 13:30 09/10/25 13:45 09/10/25 13:55 Temperature 98.4 F Pulse Rate 65 Respiratory Rate 14 Blood Pressure 149/64 O2 Sat by Pulse Oximetry 94 L Oxygen Delivery Method Oxygen Flow Rate FIO2% 09/10/25 14:00 09/10/25 14:01 09/10/25 14:01 Temperature Pulse Rate 62 62 Respiratory Rate 16 17 Blood Pressure 100/46 O2 Sat by Pulse Oximetry 92 L 94 L Oxygen Delivery Method Oxygen Flow Rate FIO2% 09/10/25 14:15 09/10/25 14:30 09/10/25 14:30 Temperature Pulse Rate 63 62 Respiratory Rate 14 14 Blood Pressure 116/52 O2 Sat by Pulse Oximetry 93 L 95 Oxygen Delivery Method Oxygen Flow Rate FIO2% 09/10/25 14:45 09/10/25 15:15 09/10/25 15:15 Temperature Pulse Rate 60 Respiratory Rate 14 Blood Pressure O2 Sat by Pulse Oximetry 94 L Oxygen Delivery Method Nasal Cannula Nasal Cannula Oxygen Flow Rate 1.5 1.5 FIO2% 24 09/10/25 15:21 09/10/25 15:30 09/10/25 15:45 Temperature Pulse Rate 75 74 74 Respiratory Rate 23 22 18 Blood Pressure O2 Sat by Pulse Oximetry 99 100 100 Oxygen Delivery Method Oxygen Flow Rate FIO2% 09/10/25 16:00 09/10/25 16:01 09/10/25 16:01 Temperature 97.0 F L Pulse Rate 72 72 Respiratory Rate 19 22 Blood Pressure 167/72 O2 Sat by Pulse Oximetry 98 100 Oxygen Delivery Method Oxygen Flow Rate FIO2% 09/10/25 19:00 09/10/25 19:54 09/10/25 20:00 Temperature 97.8 F Pulse Rate 78 Respiratory Rate 17 Blood Pressure 164/72 O2 Sat by Pulse Oximetry 99 Oxygen Delivery Method Nasal Cannula Nasal Cannula Nasal Cannula Oxygen Flow Rate 1.5 1 1 FIO2% 24 09/10/25 21:15 09/10/25 21:30 09/10/25 21:45 Temperature Pulse Rate 71 70 71 Respiratory Rate 16 15 16 Blood Pressure O2 Sat by Pulse Oximetry 96 97 98 Oxygen Delivery Method Oxygen Flow Rate FIO2% 09/10/25 22:00 09/10/25 22:15 09/10/25 22:30 Temperature Pulse Rate 71 71 83 Respiratory Rate 15 15 18 Blood Pressure O2 Sat by Pulse Oximetry 96 96 99 Oxygen Delivery Method Oxygen Flow Rate FIO2% 09/10/25 22:45 09/10/25 23:00 09/10/25 23:15 Temperature Pulse Rate 77 82 75 Respiratory Rate 16 18 16 Blood Pressure O2 Sat by Pulse Oximetry 97 96 97 Oxygen Delivery Method Oxygen Flow Rate FIO2% 09/10/25 23:30 09/10/25 23:45 09/11/25 00:00 Temperature 97.9 F Pulse Rate 80 84 86 Respiratory Rate 24 29 H 25 H Blood Pressure 130/63 O2 Sat by Pulse Oximetry 97 97 97 Oxygen Delivery Method Nasal Cannula Oxygen Flow Rate 1 FIO2% 09/11/25 00:00 09/11/25 00:01 09/11/25 00:01 Temperature Pulse Rate 82 83 Respiratory Rate 20 21 Blood Pressure 130/63 O2 Sat by Pulse Oximetry 95 95 Oxygen Delivery Method Oxygen Flow Rate FIO2% 09/11/25 00:15 09/11/25 00:30 09/11/25 00:45 Temperature Pulse Rate 84 84 84 Respiratory Rate 20 30 H 21 Blood Pressure O2 Sat by Pulse Oximetry 95 94 L 92 L Oxygen Delivery Method Oxygen Flow Rate FIO2% 09/11/25 01:00 09/11/25 01:15 09/11/25 01:30 Temperature Pulse Rate 84 82 85 Respiratory Rate 20 25 H 20 Blood Pressure O2 Sat by Pulse Oximetry 93 L 92 L 92 L Oxygen Delivery Method Oxygen Flow Rate FIO2% 09/11/25 01:45 09/11/25 02:00 09/11/25 02:15 Temperature Pulse Rate 85 87 88 Respiratory Rate 20 19 26 H Blood Pressure O2 Sat by Pulse Oximetry 91 L 91 L 91 L Oxygen Delivery Method Oxygen Flow Rate FIO2% 09/11/25 02:30 09/11/25 02:45 09/11/25 03:00 Temperature Pulse Rate 88 84 83 Respiratory Rate 25 H 23 21 Blood Pressure O2 Sat by Pulse Oximetry 91 L 91 L 93 L Oxygen Delivery Method Oxygen Flow Rate FIO2% 09/11/25 03:15 09/11/25 03:30 09/11/25 03:45 Temperature Pulse Rate 81 81 82 Respiratory Rate 22 23 23 Blood Pressure O2 Sat by Pulse Oximetry 93 L 95 95 Oxygen Delivery Method Oxygen Flow Rate FIO2% 09/11/25 04:00 09/11/25 04:00 09/11/25 04:00 Temperature 98.7 F Pulse Rate 78 79 Respiratory Rate 21 23 Blood Pressure 128/61 128/61 O2 Sat by Pulse Oximetry 94 L 94 L Oxygen Delivery Method Nasal Cannula Oxygen Flow Rate 2 FIO2% 09/11/25 04:15 09/11/25 04:30 09/11/25 04:45 Temperature Pulse Rate 80 79 79 Respiratory Rate 24 22 27 H Blood Pressure O2 Sat by Pulse Oximetry 95 95 94 L Oxygen Delivery Method Oxygen Flow Rate FIO2% 09/11/25 05:00 09/11/25 05:15 09/11/25 05:30 Temperature Pulse Rate 79 76 78 Respiratory Rate 24 26 H 19 Blood Pressure O2 Sat by Pulse Oximetry 94 L 94 L 95 Oxygen Delivery Method Oxygen Flow Rate FIO2% 09/11/25 05:45 09/11/25 06:00 09/11/25 06:15 Temperature Pulse Rate 75 75 72 Respiratory Rate 25 H 38 H 18 Blood Pressure O2 Sat by Pulse Oximetry 95 94 L 94 L Oxygen Delivery Method Oxygen Flow Rate FIO2% 09/11/25 06:30 09/11/25 06:45 09/11/25 07:00 Temperature Pulse Rate 91 H 74 Respiratory Rate 33 H 24 Blood Pressure O2 Sat by Pulse Oximetry 94 L 94 L Oxygen Delivery Method Nasal Cannula Oxygen Flow Rate 1 FIO2% 09/11/25 07:00 09/11/25 07:15 09/11/25 07:30 Temperature Pulse Rate 75 74 75 Respiratory Rate 20 19 20 Blood Pressure O2 Sat by Pulse Oximetry 95 96 95 Oxygen Delivery Method Oxygen Flow Rate FIO2% 09/11/25 07:45 09/11/25 08:00 09/11/25 08:00 Temperature Pulse Rate 83 85 Respiratory Rate 20 19 Blood Pressure 180/74 O2 Sat by Pulse Oximetry 97 96 Oxygen Delivery Method Oxygen Flow Rate FIO2% 09/11/25 08:15 09/11/25 08:30 09/11/25 08:30 Temperature Pulse Rate 81 79 Respiratory Rate 18 19 Blood Pressure O2 Sat by Pulse Oximetry 95 94 L Oxygen Delivery Method Nasal Cannula Oxygen Flow Rate 1 FIO2% 24 09/11/25 08:45 09/11/25 09:00 09/11/25 09:15 Temperature Pulse Rate 73 69 91 H Respiratory Rate 17 17 17 Blood Pressure O2 Sat by Pulse Oximetry 94 L 94 L 93 L Oxygen Delivery Method Oxygen Flow Rate FIO2% 09/11/25 09:30 09/11/25 09:45 09/11/25 10:00 Temperature Pulse Rate 90 83 85 Respiratory Rate 19 21 18 Blood Pressure O2 Sat by Pulse Oximetry 87 L 92 L 92 L Oxygen Delivery Method Oxygen Flow Rate FIO2% 09/11/25 10:15 09/11/25 10:30 09/11/25 10:45 Temperature Pulse Rate 79 82 82 Respiratory Rate 19 20 20 Blood Pressure O2 Sat by Pulse Oximetry 92 L 94 L 94 L Oxygen Delivery Method Oxygen Flow Rate FIO2% 09/11/25 11:00 09/11/25 11:15 09/11/25 11:30 Temperature Pulse Rate 82 82 77 Respiratory Rate 20 20 18 Blood Pressure O2 Sat by Pulse Oximetry 93 L 96 Oxygen Delivery Method Oxygen Flow Rate FIO2% 09/11/25 11:45 09/11/25 12:00 09/11/25 12:01 Temperature 98.2 F Pulse Rate 81 79 80 Respiratory Rate 17 18 21 Blood Pressure O2 Sat by Pulse Oximetry 96 92 L 93 L Oxygen Delivery Method Oxygen Flow Rate FIO2% 09/11/25 12:01 09/11/25 12:15 09/11/25 12:30 Temperature Pulse Rate 79 80 Respiratory Rate 24 18 Blood Pressure 165/99 O2 Sat by Pulse Oximetry 95 95 Oxygen Delivery Method Oxygen Flow Rate FIO2% 09/11/25 12:45 09/11/25 13:00 09/11/25 13:15 Temperature Pulse Rate 80 79 79 Respiratory Rate 20 23 23 Blood Pressure O2 Sat by Pulse Oximetry 95 95 96 Oxygen Delivery Method Oxygen Flow Rate FIO2% 09/11/25 13:30 09/11/25 13:45 09/11/25 14:00 Temperature Pulse Rate 75 80 75 Respiratory Rate 21 22 21 Blood Pressure O2 Sat by Pulse Oximetry 96 97 90 L Oxygen Delivery Method Oxygen Flow Rate FIO2% 09/11/25 14:15 09/11/25 14:30 09/11/25 14:45 Temperature Pulse Rate 72 85 72 Respiratory Rate 19 43 H 27 H Blood Pressure O2 Sat by Pulse Oximetry 95 94 L 96 Oxygen Delivery Method Oxygen Flow Rate FIO2% 09/11/25 15:00 09/11/25 15:15 09/11/25 15:30 Temperature Pulse Rate 71 102 H 84 Respiratory Rate 19 36 H 30 H Blood Pressure O2 Sat by Pulse Oximetry 96 94 L 95 Oxygen Delivery Method Oxygen Flow Rate FIO2% 09/11/25 15:35 09/11/25 15:35 09/11/25 15:45 Temperature Pulse Rate 83 80 Respiratory Rate 31 H 21 Blood Pressure 178/70 O2 Sat by Pulse Oximetry 94 L 94 L Oxygen Delivery Method Oxygen Flow Rate FIO2% 09/11/25 16:00 09/11/25 16:01 09/11/25 16:01 Temperature Pulse Rate 80 81 Respiratory Rate 19 21 Blood Pressure 171/76 O2 Sat by Pulse Oximetry 95 94 L Oxygen Delivery Method Oxygen Flow Rate FIO2% 09/11/25 16:15 09/11/25 19:00 09/11/25 20:00 Temperature 98.1 F Pulse Rate 79 76 Respiratory Rate 24 25 H Blood Pressure 149/66 O2 Sat by Pulse Oximetry 95 95 Oxygen Delivery Method Nasal Cannula Nasal Cannula Oxygen Flow Rate 1 2 FIO2% 09/11/25 20:19 09/11/25 21:45 09/11/25 22:00 Temperature Pulse Rate 86 81 Respiratory Rate 22 21 Blood Pressure O2 Sat by Pulse Oximetry 89 L 95 Oxygen Delivery Method Nasal Cannula Oxygen Flow Rate 2 FIO2% 28 09/11/25 22:15 09/11/25 22:30 09/11/25 22:45 Temperature Pulse Rate 76 73 71 Respiratory Rate 22 18 20 Blood Pressure O2 Sat by Pulse Oximetry 95 95 94 L Oxygen Delivery Method Oxygen Flow Rate FIO2% 09/11/25 23:00 09/11/25 23:15 09/11/25 23:30 Temperature Pulse Rate 96 H 79 75 Respiratory Rate 27 H 21 20 Blood Pressure O2 Sat by Pulse Oximetry 96 95 96 Oxygen Delivery Method Oxygen Flow Rate FIO2% 09/11/25 23:45 09/12/25 00:00 09/12/25 00:00 Temperature 98.0 F Pulse Rate 75 75 78 Respiratory Rate 20 17 20 Blood Pressure 160/72 O2 Sat by Pulse Oximetry 95 96 96 Oxygen Delivery Method Nasal Cannula Oxygen Flow Rate 2 FIO2% 09/12/25 00:00 09/12/25 00:15 09/12/25 00:30 Temperature Pulse Rate 73 83 Respiratory Rate 20 22 Blood Pressure 160/72 O2 Sat by Pulse Oximetry 96 97 Oxygen Delivery Method Oxygen Flow Rate FIO2% 09/12/25 00:45 09/12/25 01:00 09/12/25 01:15 Temperature Pulse Rate 75 69 66 Respiratory Rate 20 20 20 Blood Pressure O2 Sat by Pulse Oximetry 97 96 96 Oxygen Delivery Method Oxygen Flow Rate FIO2% 09/12/25 01:30 09/12/25 01:45 09/12/25 02:00 Temperature Pulse Rate 71 65 65 Respiratory Rate 20 19 19 Blood Pressure O2 Sat by Pulse Oximetry 97 96 96 Oxygen Delivery Method Oxygen Flow Rate FIO2% 09/12/25 02:15 09/12/25 02:30 09/12/25 02:45 Temperature Pulse Rate 66 65 80 Respiratory Rate 21 20 22 Blood Pressure O2 Sat by Pulse Oximetry 96 96 97 Oxygen Delivery Method Oxygen Flow Rate FIO2% 09/12/25 03:00 09/12/25 03:15 09/12/25 03:30 Temperature Pulse Rate 66 66 67 Respiratory Rate 22 21 19 Blood Pressure O2 Sat by Pulse Oximetry 97 97 97 Oxygen Delivery Method Oxygen Flow Rate FIO2% 09/12/25 03:45 09/12/25 04:00 09/12/25 04:00 Temperature 97.9 F Pulse Rate 69 72 76 Respiratory Rate 20 21 22 Blood Pressure 160/70 O2 Sat by Pulse Oximetry 97 96 96 Oxygen Delivery Method Nasal Cannula Oxygen Flow Rate 2 FIO2% 09/12/25 04:01 09/12/25 04:01 09/12/25 04:03 Temperature Pulse Rate 74 74 Respiratory Rate 22 22 Blood Pressure 164/72 O2 Sat by Pulse Oximetry 96 96 Oxygen Delivery Method Oxygen Flow Rate FIO2% 09/12/25 04:03 09/12/25 04:15 09/12/25 04:30 Temperature Pulse Rate 75 74 Respiratory Rate 22 22 Blood Pressure 160/70 O2 Sat by Pulse Oximetry 96 95 Oxygen Delivery Method Oxygen Flow Rate FIO2% 09/12/25 04:45 09/12/25 05:00 09/12/25 05:15 Temperature Pulse Rate 75 67 71 Respiratory Rate 22 19 21 Blood Pressure O2 Sat by Pulse Oximetry 95 95 95 Oxygen Delivery Method Oxygen Flow Rate FIO2% 09/12/25 05:30 09/12/25 05:45 09/12/25 06:00 Temperature Pulse Rate 66 64 67 Respiratory Rate 22 20 20 Blood Pressure O2 Sat by Pulse Oximetry 96 95 96 Oxygen Delivery Method Oxygen Flow Rate FIO2% 09/12/25 06:15 09/12/25 06:30 09/12/25 06:45 Temperature Pulse Rate 66 67 75 Respiratory Rate 19 22 21 Blood Pressure O2 Sat by Pulse Oximetry 96 96 97 Oxygen Delivery Method Oxygen Flow Rate FIO2% 09/12/25 07:00 09/12/25 07:00 09/12/25 07:15 Temperature Pulse Rate 79 88 Respiratory Rate 23 34 H Blood Pressure O2 Sat by Pulse Oximetry 97 95 Oxygen Delivery Method Nasal Cannula Oxygen Flow Rate 1 FIO2% 09/12/25 07:30 09/12/25 07:45 09/12/25 08:00 Temperature Pulse Rate 83 89 84 Respiratory Rate 22 24 20 Blood Pressure O2 Sat by Pulse Oximetry 94 L 95 92 L Oxygen Delivery Method Oxygen Flow Rate FIO2% 09/12/25 08:13 09/12/25 08:13 09/12/25 08:15 Temperature Pulse Rate 82 87 Respiratory Rate 18 19 Blood Pressure 165/72 O2 Sat by Pulse Oximetry 93 L 93 L Oxygen Delivery Method Oxygen Flow Rate FIO2% 09/12/25 08:30 09/12/25 08:45 09/12/25 09:00 Temperature Pulse Rate 81 81 83 Respiratory Rate 25 H 26 H 26 H Blood Pressure O2 Sat by Pulse Oximetry 94 L 95 90 L Oxygen Delivery Method Oxygen Flow Rate FIO2% 09/12/25 09:15 09/12/25 09:30 09/12/25 09:45 Temperature Pulse Rate 85 79 80 Respiratory Rate 33 H 26 H 26 H Blood Pressure O2 Sat by Pulse Oximetry 95 95 95 Oxygen Delivery Method Oxygen Flow Rate FIO2% 09/12/25 10:00 09/12/25 10:15 09/12/25 10:30 Temperature Pulse Rate 78 78 79 Respiratory Rate 31 H 24 27 H Blood Pressure O2 Sat by Pulse Oximetry 96 96 96 Oxygen Delivery Method Oxygen Flow Rate FIO2% 09/12/25 10:45 09/12/25 11:00 09/12/25 11:15 Temperature Pulse Rate 78 71 72 Respiratory Rate 27 H 26 H 23 Blood Pressure O2 Sat by Pulse Oximetry 94 L 96 96 Oxygen Delivery Method Oxygen Flow Rate FIO2% 09/12/25 11:30 09/12/25 11:45 09/12/25 12:00 Temperature 98.5 F Pulse Rate 72 69 71 Respiratory Rate 24 23 26 H Blood Pressure O2 Sat by Pulse Oximetry 98 97 97 Oxygen Delivery Method Oxygen Flow Rate FIO2% 09/12/25 12:00 09/12/25 12:15 09/12/25 12:30 Temperature Pulse Rate 70 73 Respiratory Rate 25 H 23 Blood Pressure 168/73 O2 Sat by Pulse Oximetry 98 98 Oxygen Delivery Method Oxygen Flow Rate FIO2% 09/12/25 12:45 09/12/25 13:00 09/12/25 13:15 Temperature Pulse Rate 71 74 72 Respiratory Rate 25 H 24 23 Blood Pressure O2 Sat by Pulse Oximetry 97 96 98 Oxygen Delivery Method Oxygen Flow Rate FIO2% 09/12/25 13:30 09/12/25 13:45 09/12/25 14:00 Temperature Pulse Rate 70 77 80 Respiratory Rate 27 H 33 H 36 H Blood Pressure O2 Sat by Pulse Oximetry 97 97 93 L Oxygen Delivery Method Oxygen Flow Rate FIO2% 09/12/25 14:15 09/12/25 14:30 09/12/25 14:45 Temperature Pulse Rate 75 69 71 Respiratory Rate 31 H 23 26 H Blood Pressure O2 Sat by Pulse Oximetry 96 98 97 Oxygen Delivery Method Oxygen Flow Rate FIO2% 09/12/25 15:00 09/12/25 15:15 09/12/25 15:30 Temperature Pulse Rate 69 70 67 Respiratory Rate 21 31 H 26 H Blood Pressure O2 Sat by Pulse Oximetry 96 95 97 Oxygen Delivery Method Oxygen Flow Rate FIO2% 09/12/25 15:45 09/12/25 16:00 09/12/25 16:00 Temperature 98.2 F Pulse Rate 152 H 67 Respiratory Rate 38 H 21 Blood Pressure 180/81 O2 Sat by Pulse Oximetry 97 97 Oxygen Delivery Method Oxygen Flow Rate FIO2% 09/12/25 16:15 09/12/25 16:30 09/12/25 16:45 Temperature Pulse Rate 68 69 70 Respiratory Rate 23 18 24 Blood Pressure O2 Sat by Pulse Oximetry 97 97 97 Oxygen Delivery Method Oxygen Flow Rate FIO2% 09/12/25 17:00 09/12/25 17:15 09/12/25 17:30 Temperature Pulse Rate 70 69 73 Respiratory Rate 26 H 27 H 24 Blood Pressure O2 Sat by Pulse Oximetry 97 96 94 L Oxygen Delivery Method Oxygen Flow Rate FIO2% 09/12/25 17:42 09/12/25 17:42 09/12/25 19:00 Temperature Pulse Rate 72 Respiratory Rate 22 Blood Pressure 164/75 O2 Sat by Pulse Oximetry 96 Oxygen Delivery Method Nasal Cannula Oxygen Flow Rate 2 FIO2% 09/12/25 19:35 09/12/25 20:00 09/12/25 20:00 Temperature 98.4 F Pulse Rate 102 H Respiratory Rate 22 Blood Pressure 154/74 O2 Sat by Pulse Oximetry 96 Oxygen Delivery Method Nasal Cannula Oxygen Flow Rate 2 FIO2% 28 09/12/25 21:00 09/12/25 22:00 09/12/25 23:00 Temperature Pulse Rate 69 67 66 Respiratory Rate 20 17 20 Blood Pressure O2 Sat by Pulse Oximetry 96 95 94 L Oxygen Delivery Method Oxygen Flow Rate FIO2% 09/13/25 00:00 09/13/25 00:01 09/13/25 00:01 Temperature 98.1 F Pulse Rate 69 72 Respiratory Rate 18 20 Blood Pressure 132/60 O2 Sat by Pulse Oximetry 95 96 Oxygen Delivery Method Oxygen Flow Rate FIO2% 09/13/25 01:00 09/13/25 02:00 09/13/25 03:00 Temperature Pulse Rate 76 84 68 Respiratory Rate 20 30 H 21 Blood Pressure O2 Sat by Pulse Oximetry 95 95 95 Oxygen Delivery Method Oxygen Flow Rate FIO2% 09/13/25 04:00 09/13/25 04:01 09/13/25 04:01 Temperature 98.6 F Pulse Rate 68 68 Respiratory Rate 24 21 Blood Pressure 126/58 O2 Sat by Pulse Oximetry 96 96 Oxygen Delivery Method Oxygen Flow Rate FIO2% 09/13/25 08:20 Temperature Pulse Rate Respiratory Rate Blood Pressure O2 Sat by Pulse Oximetry Oxygen Delivery Method Nasal Cannula Oxygen Flow Rate 2 FIO2% 28 Labs: Laboratory Last Values WBC 6.4 X10^3/uL (3.6-10.0) 09/13/25 04:35 RBC 3.06 X10^6/uL (3.5-5.4) L 09/13/25 04:35 Hgb 9.6 g/dL (12.0-16.0) L 09/13/25 04:35 Hct 28.1 % (36.0-47.0) L 09/13/25 04:35 MCV 92.1 fL (80.0-100.0) 09/13/25 04:35 MCH 31.4 pg (27.0-34.0) 09/13/25 04:35 MCHC 34.1 g/dL (33.0-35.0) 09/13/25 04:35 RDW 14.0 % (11.6-16.5) 09/13/25 04:35 Plt Count 281 X10^3/uL (150.0-450.0) 09/13/25 04:35 Plt Count Comment Adequate (ADEQUATE) 09/13/25 04:35 MPV 7.6 fL (7.4-11.0) 09/13/25 04:35 Neut % (Auto) 61.0 % (42.0-75.0) 09/13/25 04:35 Lymph % (Auto) 24.8 % (21.0-51.0) 09/13/25 04:35 [place] % (Auto) 10.0 % (0.0-13.0) 09/13/25 04:35 Eos % (Auto) 3.8 % (0.9-2.9) H 09/13/25 04:35 Baso % (Auto) 0.4 % (0.2-1.0) 09/13/25 04:35 Neut # (Auto) 3.9 x10^3/uL (2.2-4.8) 09/13/25 04:35 Lymph # (Auto) 1.6 X10^3/uL (1.3-2.9) 09/13/25 04:35 [place] # (Auto) 0.6 x10^3/uL (0.3-0.8) 09/13/25 04:35 Eos # (Auto) 0.2 x10^3/uL (0.0-0.2) 09/13/25 04:35 Baso # (Auto) 0.0 X10^3/uL (0.0-0.1) 09/13/25 04:35 Absolute Nucleated RBC 0.4 /100WBC 09/13/25 04:35 Total Counted 100 09/13/25 04:35 Neutrophils % (Manual) 72 % (39-76) 09/13/25 04:35 Band Neutrophils % 1 % (0-10) 09/13/25 04:35 Lymphocytes % (Manual) 18 % (13-43) 09/13/25 04:35 Monocytes % (Manual) 7 % (4-9) 09/13/25 04:35 Eosinophils % (Manual) 2 % (0-6) 09/13/25 04:35 Plt Morphology Comment Normal (NORMAL) 09/13/25 04:35 RBC Morphology Normal (NORMAL) 09/13/25 04:35 Sodium 143 mmol/L (136-145) 09/13/25 04:35 Corrected Sodium TNP 09/13/25 04:35 Potassium 3.6 mmol/L (3.5-5.1) 09/13/25 04:35 Chloride 102 mmol/L (98-107) 09/13/25 04:35 Carbon Dioxide 32.6 mmol/L (21-32) H 09/13/25 04:35 BUN 8 mg/dL (7-18) 09/13/25 04:35 Creatinine 0.77 mg/dL (0.55-1.02) 09/13/25 04:35 Est GFR (MDRD) Af Amer > 60 (>60) 09/13/25 04:35 Est GFR (MDRD) Non-Af > 60 (>60) 09/13/25 04:35 Glucose 105 mg/dL (65-99) H 09/13/25 04:35 Lactic Acid 0.8 mmol/L (0.4-2.0) 09/10/25 10:54 Calcium 9.2 mg/dL (8.5-10.1) 09/13/25 04:35 Corrected Calcium 10.6 mg/dL (8.5-10.1) H 09/13/25 04:35 Magnesium 1.7 mg/dL (2.0-2.9) L 09/13/25 04:35 Total Bilirubin 0.20 mg/dL (0.2-1.0) 09/13/25 04:35 AST 21 Units/L (15-37) 09/13/25 04:35 ALT 11 Units/L (12-78) L 09/13/25 04:35 Alkaline Phosphatase 165 Units/L (46-116) H 09/13/25 04:35 Total Protein 6.4 g/dL (6.4-8.2) 09/13/25 04:35 Albumin 2.3 g/dL (3.4-5.0) L 09/13/25 04:35 Globulin 4.1 g/dL (2.5-4.5) 09/13/25 04:35 Albumin/Globulin Ratio 0.6 Ratio (1.1-2.1) L 09/13/25 04:35 Vitamin B12 > 2000 pg/mL (193-986) H 09/11/25 04:12 Free T4 0.98 ng/dL (0.76-1.46) 09/11/25 04:12 TSH 3rd Generation 7.840 uIU/mL (0.358-3.74) H 09/11/25 04:12 Specimen Type Catherized urine 09/10/25 11:00 Urine Color Pale yellow (YELLOW) 09/10/25 11:00 Urine Appearance Hazy (CLEAR) 09/10/25 11:00 Urine pH 6.0 (5.0 - 8.0) 09/10/25 11:00 Ur Specific [place] 1.015 (1.000-1.030) 09/10/25 11:00 Urine Protein 3+ (NEGATIVE) 09/10/25 11:00 Urine Glucose (UA) Negative (NEGATIVE) 09/10/25 11:00 Urine Ketones Negative (NEGATIVE) 09/10/25 11:00 Urine Blood 4+ (NEGATIVE) 09/10/25 11:00 Urine Nitrite Negative (NEGATIVE) 09/10/25 11:00 Urine Bilirubin Negative (NEGATIVE) 09/10/25 11:00 Urine Urobilinogen Normal (NORMAL) 09/10/25 11:00 Ur Leukocyte Esterase 3+ (NEGATIVE) 09/10/25 11:00 Urine RBC 10-20 /HPF (0-3) A 09/10/25 11:00 Urine WBC Tntc /HPF (0-5) A 09/10/25 11:00 Ur Squamous Epith Cells Rare /HPF (NEGATIVE) 09/10/25 11:00 Urine Bacteria 2+ /HPF (NEGATIVE) 09/10/25 11:00 Ur Culture Indicated? Yes/culture set up 09/10/25 11:00 Stool for White Cells Positive (NEGATIVE) A 09/12/25 14:59 Stl C. diff Tox B Gene Negative (NEGATIVE) 09/12/25 14:59 Stl C. diff [id number] Presumptive negative (NEGATIVE) 09/12/25 14:59 Reason For Visit: ALTERED MENTAL STATUS, UTI Discharge Diagnosis All Active Problems (Updated 09/12/25 @ 10:09 by Siobhan Hung MD) Acute diarrhea (Acute) GERD (gastroesophageal reflux disease) (Chronic) HTN (hypertension) (Chronic) Wound of left upper extremity (Acute) Altered mental status (Acute) UTI (urinary tract infection) (Acute) Anxiety disorder, unspecified (Chronic) Unsteadiness on feet (Acute) Hematoma of left knee region (Acute) Encounter for medication counseling (Acute) Laceration of skin of right lower leg (Acute) Open wound of right hand (Acute) Contusion of multiple sites (Acute) Contusion of occipital region of scalp (Acute) Bronchitis (Acute) Alkalosis, metabolic (Acute) SOB (shortness of breath) (Acute) Syncope (Acute) Spinal stenosis of lumbar region (Acute) Knee pain (Chronic) DJD (degenerative joint disease) (Acute) Hip pain (Acute) Back pain (Acute) Plan of Treatment: Continue with present treatment and follow up plan. Pt is to keep follow up appointment as instructed and take medications as ordered. Discharge Medications Discharge Medications: codeine Allergy (Unknown, Verified 09/10/25 10:23) Sulfa (Sulfonamide Antibiotics) (SULFA) Allergy (Unknown, Verified 09/10/25 10:23) citalopram Allergy (Verified 09/10/25 10:23) CONTINUE taking the following medications cefdinir 300 mg capsule 300 mg PO BID 09/10/25 [History] docusate sodium 100 mg capsule (Colace) 200 mg PO HS 09/10/25 [History] ibuprofen 200 mg tablet 200 mg PO Q4H PRN Pain 09/10/25 [History] polyethylene glycol 3350 17 gram oral powder packet (Miralax) 17 g PO DAILY 09/10/25 [History] Discharge Disposition Discharge Disposition: [facility] Discharge Condition: stable Discharge Plan Discharge Plan Hospital Course: Patient was brought from [facility] after being agitated and confused. Patient tried to stab herself with a pen and was stating that she [facility] to [facility] the [facility]. She was given Haldol and brought to the ER. She was being treated for UTI since last week. Workup included CT brain which was negative for any acute changes. Labs were done and UA was concerning for UTI. Patient was started on IV antibiotics and admitted for further management. Patient does have a history of depression, anxiety and bipolar disorder. She is alert and oriented this morning. She denies having any SI or HI. She does not recall the episode yesterday. Mobile crisis team was consulted and evaluated the patient. Patient was cleared to go back to [facility]. Urine Cx grew out Klebsiella ESBL. Her antibiotics were changed to Invanz. Her labs were monitored daily and electrolytes replaced as needed. She will need IV antibiotics. Anesthesia was consulted for PICC line but had 2 unsuccessful attempts. Patient was sent back to [facility] with peripheral access. She was stable for discharge. Time spent for clinical assessment, reviewing labs and imaging, physical exam, decision making and documentation greater than 45 minutes. Patient Disposition: [facility] Condition: Stable Health Concerns: Post Hospitalization: new medications and changes needed to prevent readmission or further decline. Pt educated and given instructions on all concerns. Care Plan Goals: Problem: Pain/Alteration in Comfort Goal: Improve/ Resolve Pain; Achieve Pain Tolerance Instructions: Take pain medications as prescribed. Contact your primary care provider if your pain is unrelieved or worsens. Follow up with primary care provider as directed. Plan of Treatment: Continue with present treatment and follow up plan. Pt is to keep follow up appointment as instructed and take medications as ordered. Prescription drug monitoring program results: PDMP reviewed and no concerns identified Prescriptions: New ertapenem 1 gram Recon Soln 1 g IV QDAY Qty: 12 0RF Continued gabapentin 600 mg tablet 600 mg PO TID donepezil 10 mg tablet 10 mg PO QDAY [id number]-aakj 50-325-40 mg tablet 1 tab PO Q8H PRN losartan 25 mg tablet 25 mg PO QHS furosemide 20 mg tablet 20 mg PO QDAY tramadol 50 mg tablet 50 mg PO Q6H PRN omeprazole 20 mg capsule,delayed release(DR/EC) 20 mg PO DAILY nystatin [Nyamyc] 100,000 unit/gram powder 1 applic topical DAILY Patient Comments: [NO ORIGINAL SIG] levothyroxine 175 mcg tablet 175 mcg PO QDAY lamotrigine 200 mg tablet 200 mg PO HS amitriptyline 25 mg tablet 75 tab PO HS mirtazapine 30 mg tablet 30 mg PO QPM ergocalciferol (vitamin D2) 1,250 mcg (50,000 unit) capsule 1 cap PO QWEEK fluoxetine 20 mg capsule 20 mg PO HS ursodiol 500 mg tablet 500 tab PO QID polyethylene glycol 3350 [Miralax] 17 gram Powder In Packet 17 g PO DAILY ibuprofen 200 mg Tablet 200 mg PO Q4H PRN (Reason: Pain) docusate sodium [Colace] 100 mg Capsule 200 mg PO HS Discontinued cefdinir 300 mg capsule 300 mg PO BID Rx Instructions: x 10 days - started on 09/06/25 Orders to Discharge Patient Discharge Orders: Discharge (Routine); Ordered 09/13/25 Ordered By: Pj Montoya Follow ups/Referrals Follow ups/Referrals: Pj Montoya MD [Primary Care Provider, MEDICAL] - 1 WEEK Instructions Instructions: Urinary Tract Infection, Female, Urinary Tract Infection, Adult Print Language: [place]
== END 2025-09-13 15:05 ==
LOC: ER 10:07 → ICU 10:07 → ER 14:59 → ICU 15:00
PROVIDERS: ADMIT Family Medicine; ATTEND Family Medicine
DX: I10 Essential (primary) hypertension; E87.1 Hypo-osmolality and hyponatremia; Z79.899 Other long term (current) drug therapy; Z16.29 Resistance to other single specified antibiotic; Y92.129 Unspecified place in nursing home as the place of occurrence of the external cause; K21.9 Gastro-esophageal reflux disease without esophagitis; F41.8 Other specified anxiety disorders; R26.89 Other abnormalities of gait and mobility; R05.8 Other specified cough; Z16.12 Extended spectrum beta lactamase (ESBL) resistance; E83.42 Hypomagnesemia; N30.00 Acute cystitis without hematuria; Z16.23 Resistance to quinolones and fluoroquinolones; R79.89 Other specified abnormal findings of blood chemistry; R19.7 Diarrhea, unspecified; D64.89 Other specified anemias; E03.8 Other specified hypothyroidism; R10.13 Epigastric pain; R41.82 Altered mental status, unspecified; N20.0 Calculus of kidney; R45.1 Restlessness and agitation; B96.1 Klebsiella pneumoniae [K. pneumoniae] as the cause of diseases classified elsewhere; K59.09 Other constipation; X78.8XXA Intentional self-harm by other sharp object, initial encounter; R10.84 Generalized abdominal pain; F32.A Depression, unspecified; S51.802A Unspecified open wound of left forearm, initial encounter